=== PATIENT | female | born 1970 | race Caucasian/White ===

== ENCOUNTER 2018-12-26 18:12 | Emergency (ER) | payer MEDICAID ==
[~2018-12-26] VITALS: Ht 170.2 cm; Wt 111.0 kg
[~2018-12-26 18:12] MED LIST: AMOX500T2 PO; GABA300C PO; LORA-269 PO; PANT-47 PO
[2018-12-26 18:28] VITALS: BP 142/101
== END 2018-12-26 20:12 | disposition home or self-care (01) ==
LOC: ER 18:12
DX: F10.239 Alcohol dependence with withdrawal, unspecified (principal); E11.9 Type 2 diabetes mellitus without complications; F12.90 Cannabis use, unspecified, uncomplicated; F15.90 Other stimulant use, unspecified, uncomplicated; Z56.0 Unemployment, unspecified; Z59.0 Homelessness
CPT/HCPCS: 99281

== ENCOUNTER 2019-10-02 18:24 | Emergency (ER) | payer MEDICAID ==
[~2019-10-02] VITALS: Ht 170.2 cm; Wt 118.0 kg
[~2019-10-02 18:24] MED LIST changes: +GABA-532 PO; +ONDA4TAB6 PO
[2019-10-02 19:10] LABS: BASOPHILS % (AUTO) 0.3 % (0-1); EOSINOPHILS # (AUTO) 0.1 X10'3 (0-0.9); EOSINOPHILS % (AUTO) 1.3 % (0-6); HEMATOCRIT 40.7 % (35.0-45.0); HEMOGLOBIN 14.1 g/dl (12.0-16.0); LYMPHOCYTES # (AUTO) 2.3 X10'3 (1.1-4.8); LYMPHOCYTES % (AUTO) 32.7 % (21-51); MEAN CORPUSCULAR HEMOGLOBIN 33.7 PG (27.0-31.0); MEAN CORPUSCULAR HGB CONC 34.7 g/dL (33.0-36.5); MEAN CORPUSCULAR VOLUME 97.2 FL (78-98); MEAN PLATELET VOLUME 7.8 FL (7.4-10.4); MONOCYTES # (AUTO) 0.4 X10'3 (0-0.9); MONOCYTES % (AUTO) 5.1 % (2-12); NEUTROPHILS # (AUTO) 4.3 X10'3 (1.8-7.7); NEUTROPHILS % (AUTO) 60.6 % (42-75); PLATELET COUNT 351 X10'3 (140-440); RED BLOOD COUNT 4.19 X10'6 (4.20-5.60); RED CELL DISTRIBUTION WIDTH 15.7 % (11.5-14.5); WHITE BLOOD COUNT 7.1 X10'3 (4.5-11.0)
[2019-10-02 19:26] LABS: ALANINE AMINOTRANSFERASE 53 U/L (12-78); ALKALINE PHOSPHATASE 93 IU/L (46-116); ANION GAP 14 (8-16); ASPARTATE AMINO TRANSFERASE 73 U/L (10-37); BILIRUBIN,TOTAL 0.4 MG/DL (0.1-1.0); BLOOD UREA NITROGEN 12 MG/DL (7-18); CALCIUM 8.8 MG/DL (8.5-10.1); CHLORIDE 103 MMOL/L (99-107); GLUCOSE 93 MG/DL (70-104); SODIUM 144 MMOL/L (135-145); TOTAL CARBON DIOXIDE 26.6 MMOL/L (24-32); TOTAL PROTEIN 8.1 G/DL (6.4-8.2); eGFR 77 ML/MIN
[2019-10-02 19:35] LABS: ETHANOL 0.383 GM/DL (0.0-0.010)
[2019-10-02] MEDS ORDERED: ondansetron 4mg rapidly disintigrating tab PO ONE ×2 (19:55→23:50)
--- NOTE | 2019-10-02 19:57 | NUR ---
Pt. placed in room, changed into green scrubs. Pt. cooperative. states she doesn't actually want to hurt herself just doesn't "what else to do" pt. tearful but pleasant.
[2019-10-02 20:00] LABS: URINE AMPHETAMINE SCREEN NEGATIVE (Neg); URINE BARBITUATE SCREEN NEGATIVE (Neg); URINE BENZODIAZEPINES SCREEN NEGATIVE (Neg); URINE CANNABINOID SCREEN NEGATIVE (Neg); URINE COCAINE SCREEN NEGATIVE (Neg); URINE METHADONE SCREEN NEGATIVE (Neg); URINE OPIATE SCREEN NEGATIVE (Neg); URINE PHENCYCLIDINE SCREEN NEGATIVE (Neg)
--- NOTE | 2019-10-02 21:19 | NUR ---
pt packet faxed to [facility]
[2019-10-02] MEDS ORDERED: ibuprofen tablet 400 MG TABLET PO ONE (21:45)
--- NOTE | 2019-10-02 21:45 | NUR ---
pt asking for ibuprophen for her finger. states her finger is broken and was x-rayed 1 week ago. finger is swollen and red. Ibuprophen given.
--- NOTE | 2019-10-02 22:18 | NUR ---
pt. states ibuprophen helped. pt. restless but cooperative.
--- NOTE | 2019-10-02 23:30 | NUR ---
pt. up to bathroom. stable and in nad. left 4th finger taped and splinted.
--- NOTE | 2019-10-02 23:45 | NUR ---
pt. vomiting, zofran ordered and given.
[2019-10-03] MEDS ORDERED: ibuprofen tablet 400 MG TABLET PO ONE (00:30)
--- NOTE | 2019-10-03 02:11 | NUR ---
pt laying on left side with eyes closed.
--- NOTE | 2019-10-03 03:15 | NUR ---
pt up to bathroom. stable and in nad.
--- NOTE | 2019-10-03 04:28 | NUR ---
Pt. laying on left side with eyes closed. breathing even and non-labored.
[2019-10-03] MEDS ORDERED: NO HOME MEDS (04:39)
[2019-10-03] MEDS ORDERED: ondansetron 4mg rapidly disintigrating tab PO ONE (05:20)
--- NOTE | 2019-10-03 05:29 | NUR ---
Pt. states feeling like she is going to vomit again. Up to bathroom vomiting. Zofran given. no tremors, diaphoresis or anxiety. States she has been drinking a fifth of whisky daily.
--- NOTE | 2019-10-03 06:17 | NUR ---
Pt up to the bathroom ambulating with a steady gait
[2019-10-03] MEDS ORDERED: ibuprofen tablet 400 MG TABLET PO PRN (06:55)
--- NOTE | 2019-10-03 07:18 | NUR ---
Pt ambulating to the bathroom with a steady gait complaining of nausea
[2019-10-03] MEDS: LORazepam 1 MG tablet PO PRN ×4 (07:24→21:39)
--- NOTE | 2019-10-03 08:19 | NUR ---
Pt boyfriend is visiting
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
[2019-10-03] MEDS: ondansetron 4mg rapidly disintigrating tab PO PRN ×2 (08:59→14:13)
--- NOTE | 2019-10-03 09:00 | NUR ---
Pt vomiting. Given zofran which was effective
--- NOTE | 2019-10-03 10:42 | NUR ---
Pt ambulated to the bathroom with a steady gait. She is not experiencing nausea at this time
--- NOTE | 2019-10-03 10:49 | NUR ---
Pt continues to be nauseous at this time
--- NOTE | 2019-10-03 12:34 | NUR ---
Pt given saltine crackers to help with nausea
--- NOTE | 2019-10-03 13:33 | NUR ---
Pt on the phone with her aunt in [place]
--- NOTE | 2019-10-03 14:05 | NUR ---
TC FROM FAMILY (EX-),
--- NOTE | 2019-10-03 16:34 | NUR ---
Pt up using the phone to call her aunt
--- NOTE | 2019-10-03 19:50 | NUR ---
The patient is sitting on her bed and visiting with significant other. She stated that she has a long hx of depression since childhood. She reports that her parents had substance abuse problems and her father killed himself. She reports her mother also had depression and she did two years ago. THe patient has been abusing etoh and recently has been drinking a 5th of vodka per day. She reports she has had two very short stays at Rehab facilities. She stated that she has been on antidepresants in the past but has become agitated and aggressive with them. She also described at least one manic episode while not abusing any drugs or ETOH. She has a history of multible arrests for etoh related offenses. She is reporting that she has been hearing voices and seeing things that are not there. Reports visual hallucinations of flickering in her periphery vision and seeing spiders on the ceiling. She reports hearing voices of people cussing.
--- NOTE | 2019-10-03 21:07 | NUR ---
The patient is being interviewed by [facility]
[2019-10-03 21:44] VITALS: BP 134/85
== END 2019-10-03 21:49 ==
LOC: ER 18:24
DX: R45.851 Suicidal ideations (principal); F10.10 Alcohol abuse, uncomplicated; E11.9 Type 2 diabetes mellitus without complications; F41.9 Anxiety disorder, unspecified; F12.90 Cannabis use, unspecified, uncomplicated; F15.90 Other stimulant use, unspecified, uncomplicated; Z59.0 Homelessness; Z56.0 Unemployment, unspecified; Z98.890 Other specified postprocedural states; Z88.8 Allergy status to other drugs, medicaments and biological substances; Z79.899 Other long term (current) drug therapy; Y90.9 Presence of alcohol in blood, level not specified
CPT/HCPCS: 36415; 80053; 80305; 80320; 84443; 85025; 99284

== ENCOUNTER 2019-10-19 16:47 | Emergency (ER) | payer MEDICAID ==
[~2019-10-19] VITALS: Ht 170.2 cm; Wt 110.6 kg
[~2019-10-19 16:47] MED LIST changes: -AMOX500T2 PO; -GABA-532 PO; -GABA300C PO; -LORA-269 PO; +NO HOME MEDS; -ONDA4TAB6 PO; -PANT-47 PO
[2019-10-19 16:57] VITALS: BP 143/104
[2019-10-19] MEDS ORDERED: AZIT250T PO (17:40)
== END 2019-10-19 17:51 | disposition home or self-care (01) ==
LOC: ER 16:48
DX: R05 Cough (principal); R07.89 Other chest pain; R09.3 Abnormal sputum; R06.2 Wheezing; E11.9 Type 2 diabetes mellitus without complications; F41.9 Anxiety disorder, unspecified; F32.9 Major depressive disorder, single episode, unspecified; F10.10 Alcohol abuse, uncomplicated; F12.90 Cannabis use, unspecified, uncomplicated; F15.90 Other stimulant use, unspecified, uncomplicated; Z59.0 Homelessness; Z56.0 Unemployment, unspecified; Z88.8 Allergy status to other drugs, medicaments and biological substances; Z79.899 Other long term (current) drug therapy; Y90.9 Presence of alcohol in blood, level not specified
CPT/HCPCS: 99283

== ENCOUNTER → 2022-02-17 | Emergency (ER) | payer MEDICAID ==
[~2022-02-17] VITALS: Ht 167.6 cm; Wt 109.1 kg
[~2022-02-17] MED LIST changes: +AZIT250T PO
[2022-02-17 15:41] VITALS: BP 141/102
== END | disposition home or self-care (01) ==
LOC: ER 14:54
DX: M71.21 Synovial cyst of popliteal space [Baker], right knee (principal); M79.661 Pain in right lower leg; M79.89 Other specified soft tissue disorders; E11.9 Type 2 diabetes mellitus without complications; F41.9 Anxiety disorder, unspecified; F32.A Depression, unspecified; F12.90 Cannabis use, unspecified, uncomplicated; F15.90 Other stimulant use, unspecified, uncomplicated; Z87.01 Personal history of pneumonia (recurrent); Z98.890 Other specified postprocedural states; Z72.89 Other problems related to lifestyle; Z59.00 Homelessness unspecified; Z56.0 Unemployment, unspecified; Z88.8 Allergy status to other drugs, medicaments and biological substances; Z79.2 Long term (current) use of antibiotics
CPT/HCPCS: 93971; 99284

== ENCOUNTER 2022-07-14 09:10 | Emergency (ER) | payer MEDICAID ==
[~2022-07-14] VITALS: Ht 170.2 cm; Wt 97.7 kg
[2022-07-14 09:20] VITALS: BP 135/72
--- NOTE | 2022-07-14 10:02 | NUR ---
07/07/22 INCIDENT [facility]
--- NOTE | 2022-07-14 10:04 | NUR ---
[facility] ON PHONE WITH PT IN [facility].
--- NOTE | 2022-07-14 10:08 | NUR ---
PT SEEN AT [facility] YESTERDAY, THEY DON'T DO THROAT EXAMS, TOLD HER TO COME TO THE HOSPITAL.
--- NOTE | 2022-07-14 10:28 | NUR ---
[facility] [address] [address] NOTIFIED STAFF THAT AN ADVOCATE FROM [facility] IS ON THEIR WAY TO STAY WITH PT DURING EXAM.
--- NOTE | 2022-07-14 10:57 | NUR ---
[address] ADVOCATE AT BEDSIDE
== END 2022-07-14 11:57 | disposition home or self-care (01) ==
LOC: ER 09:11
DX: S19.9XXA Unspecified injury of neck, initial encounter (principal); J02.9 Acute pharyngitis, unspecified; E11.9 Type 2 diabetes mellitus without complications; F41.9 Anxiety disorder, unspecified; F12.90 Cannabis use, unspecified, uncomplicated; F15.90 Other stimulant use, unspecified, uncomplicated; Z87.01 Personal history of pneumonia (recurrent); Z98.890 Other specified postprocedural states; Z72.89 Other problems related to lifestyle; Z56.0 Unemployment, unspecified; Z59.00 Homelessness unspecified; Z88.8 Allergy status to other drugs, medicaments and biological substances; Z79.2 Long term (current) use of antibiotics; X58.XXXA Exposure to other specified factors, initial encounter; Y93.89 Activity, other specified; Y92.89 Other specified places as the place of occurrence of the external cause; Y99.8 Other external cause status
CPT/HCPCS: 70360; 99283

== ENCOUNTER 2022-08-30 05:33 | Emergency (ER) | payer MEDICAID ==
[~2022-08-30] VITALS: Ht 170.2 cm; Wt 107.8 kg
[2022-08-30 05:58] VITALS: BP 119/91
--- NOTE | 2022-08-30 08:23 | NUR ---
Patient was seen and assessed by provider.
== END 2022-08-30 08:24 | disposition home or self-care (01) ==
LOC: ER 05:34
DX: F15.10 Other stimulant abuse, uncomplicated (principal); Z20.822 Contact with and (suspected) exposure to COVID-19; F10.129 Alcohol abuse with intoxication, unspecified; K21.9 Gastro-esophageal reflux disease without esophagitis; E11.9 Type 2 diabetes mellitus without complications; G89.29 Other chronic pain; F31.9 Bipolar disorder, unspecified; F12.10 Cannabis abuse, uncomplicated; Z98.890 Other specified postprocedural states; Z56.0 Unemployment, unspecified; Z59.00 Homelessness unspecified; Y90.9 Presence of alcohol in blood, level not specified
CPT/HCPCS: 87811; 99283

== ENCOUNTER 2023-01-06 22:54 | Emergency (ER) | payer MEDICAID ==
[~2023-01-06] VITALS: Ht 167.6 cm; Wt 103.0 kg
[~2023-01-06 22:54] MED LIST changes: -AZIT250T PO; +CIPR250T26 PO; +CYAN500T71 PO; +FOLI1TAB27 PO; +LACT1CAP26 PO; +LURA20TA8 PO; +thiamine tablet PO
[2023-01-06 23:07] VITALS: BP 126/74
== END 2023-01-07 00:15 | disposition left against medical advice (07) ==
LOC: ER 22:55
DX: Z00.00 Encounter for general adult medical examination without abnormal findings (principal); Z53.21 Procedure and treatment not carried out due to patient leaving prior to being seen by health care provider
CPT/HCPCS: 93005; 99281

== ENCOUNTER 2023-02-11 08:11 | Emergency (ER) | payer MEDICAID ==
[~2023-02-11] VITALS: Ht 170.2 cm; Wt 104.0 kg
[2023-02-11 08:12] VITALS: BP 123/82
[2023-02-11 08:49] LABS: CLARITY,URINE CLOUDY (Clear); COLOR,URINE YELLOW (Yellow); GLUCOSE, URINE NEGATIVE (Neg); KETONES,URINE NEGATIVE (Neg); LEUKOCYTE ESTERASE ,URINE LARGE (Neg); NITRITES, URINE NEGATIVE (Neg); OCCULT BLOOD,URINE NEGATIVE (Neg); PROTEIN,URINE NEGATIVE (Neg); UROBILINOGEN,URINE 0.2 E.U/dL (0.2-1.0)
[2023-02-11 08:51] LABS: UA COLLECTION TYPE CLN CATCH MIDSTREAM
[2023-02-11 08:58] LABS: BACTERIA,URINE 4+ /HPF (Neg); RBC,URINE NONE SEEN /HPF (0-2); WBC,URINE 50-100 /HPF (0-4)
[2023-02-11 08:59] LABS: MUCUS STRANDS NONE SEEN /LPF (Neg); SQUAMOUS EPITHELIAL CELL,UR FEW /LPF (FEW); TRANSITIONAL EPI CELLS,URINE FEW /HPF; WBC CLUMPS,URINE MODERATE /HPF (NEGATIVE)
[2023-02-11] MEDS ORDERED: CEPH-585 PO (09:08)
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
--- NOTE | 2023-02-11 13:30 | NUR ---
Faxed filled [facility] 341 form to [facility].Fax number [phone].
== END 2023-02-11 10:21 | disposition home or self-care (01) ==
LOC: ER 08:12
DX: N39.0 Urinary tract infection, site not specified (principal); F10.10 Alcohol abuse, uncomplicated; K21.9 Gastro-esophageal reflux disease without esophagitis; E11.9 Type 2 diabetes mellitus without complications; G89.29 Other chronic pain; F41.9 Anxiety disorder, unspecified; F12.90 Cannabis use, unspecified, uncomplicated; F15.90 Other stimulant use, unspecified, uncomplicated; F32.9 Major depressive disorder, single episode, unspecified; Z72.89 Other problems related to lifestyle; Z59.00 Homelessness unspecified; Z56.0 Unemployment, unspecified; Z98.890 Other specified postprocedural states; Z88.8 Allergy status to other drugs, medicaments and biological substances; Z79.899 Other long term (current) drug therapy; Y90.9 Presence of alcohol in blood, level not specified
CPT/HCPCS: 81001; 87077; 87088; 87186; 99283

== ENCOUNTER 2023-02-14 11:45 | Emergency (ER) | payer MEDICAID ==
[~2023-02-14] VITALS: Ht 170.2 cm; Wt 129.6 kg
[~2023-02-14 11:45] MED LIST changes: +CEPH-585 PO
[2023-02-14 11:51] VITALS: BP 136/86
== END 2023-02-14 14:43 | disposition home or self-care (01) ==
LOC: ER 11:46
DX: Z00.8 Encounter for other general examination (principal); Z20.822 Contact with and (suspected) exposure to COVID-19; K21.9 Gastro-esophageal reflux disease without esophagitis; E11.9 Type 2 diabetes mellitus without complications; G89.29 Other chronic pain; F31.9 Bipolar disorder, unspecified; F12.10 Cannabis abuse, uncomplicated; F15.10 Other stimulant abuse, uncomplicated; Z59.00 Homelessness unspecified; Z56.0 Unemployment, unspecified; Z88.8 Allergy status to other drugs, medicaments and biological substances; Z79.899 Other long term (current) drug therapy; Z79.1 Long term (current) use of non-steroidal anti-inflammatories (NSAID); Z79.2 Long term (current) use of antibiotics
CPT/HCPCS: 87635; 99283; C9803

== ENCOUNTER 2023-04-07 10:09 | Emergency (ER) | payer MEDICAID ==
[~2023-04-07] VITALS: Ht 170.2 cm; Wt 106.8 kg
[2023-04-07 10:24] VITALS: BP 129/91
[2023-04-07] MEDS ORDERED: GABA300C PO (11:35)
== END 2023-04-07 11:52 | disposition home or self-care (01) ==
LOC: ER 10:09
DX: F10.20 Alcohol dependence, uncomplicated (principal); K21.9 Gastro-esophageal reflux disease without esophagitis; E11.9 Type 2 diabetes mellitus without complications; F12.90 Cannabis use, unspecified, uncomplicated; F15.20 Other stimulant dependence, uncomplicated; Z88.8 Allergy status to other drugs, medicaments and biological substances; Z98.890 Other specified postprocedural states; Z56.0 Unemployment, unspecified; Z59.00 Homelessness unspecified
CPT/HCPCS: 99283

== ENCOUNTER 2023-04-11 15:13 | Emergency (ER) | payer MEDICAID ==
[~2023-04-11] VITALS: Ht 170.2 cm; Wt 103.0 kg
[~2023-04-11 15:13] MED LIST changes: +GABA300C PO
[2023-04-11 15:19] VITALS: BP 134/97
[2023-04-11] MEDS ORDERED: GABA300C PO (15:39)
== END 2023-04-11 15:42 | disposition home or self-care (01) ==
LOC: ER 15:14
DX: F10.10 Alcohol abuse, uncomplicated (principal); Z00.00 Encounter for general adult medical examination without abnormal findings; E11.9 Type 2 diabetes mellitus without complications; G89.29 Other chronic pain; F12.90 Cannabis use, unspecified, uncomplicated; F15.90 Other stimulant use, unspecified, uncomplicated; Z87.19 Personal history of other diseases of the digestive system; Z56.0 Unemployment, unspecified; Z59.00 Homelessness unspecified; Z88.8 Allergy status to other drugs, medicaments and biological substances; Z79.2 Long term (current) use of antibiotics; Z79.899 Other long term (current) drug therapy; Y90.9 Presence of alcohol in blood, level not specified
CPT/HCPCS: 99283

== ENCOUNTER 2023-05-10 11:40 | Emergency (ER) | payer MEDICAID ==
[~2023-05-10] VITALS: Ht 167.6 cm; Wt 106.8 kg
[2023-05-10 12:34] VITALS: BP 127/86; PULSE 89; RESP 18; TEMP 98.2; O2SAT 96
[2023-05-10] MEDS ORDERED: ONDA4TAB12 PO (14:28)
[2023-05-10] MEDS ORDERED: LORA-269 PO (14:28)
== END 2023-05-10 15:02 | disposition home or self-care (01) ==
LOC: ER 11:41
DX: F10.10 Alcohol abuse, uncomplicated (principal); E11.9 Type 2 diabetes mellitus without complications; K21.9 Gastro-esophageal reflux disease without esophagitis; G89.29 Other chronic pain; F31.9 Bipolar disorder, unspecified; F15.10 Other stimulant abuse, uncomplicated; F12.10 Cannabis abuse, uncomplicated; Z59.00 Homelessness unspecified; Z56.0 Unemployment, unspecified; Z88.8 Allergy status to other drugs, medicaments and biological substances; Z79.899 Other long term (current) drug therapy; Z79.1 Long term (current) use of non-steroidal anti-inflammatories (NSAID); Z79.2 Long term (current) use of antibiotics
CPT/HCPCS: 99283